=== PATIENT | male | born 1970 | race Two or more races ===

== ENCOUNTER 2024-02-25 00:57 | Emergency (ER) | payer BC ==
[~2024-02-25] VITALS: Ht 167.6 cm; Wt 86.2 kg
[2024-02-25] MEDS ORDERED: DEXAMETHASONE SODIUM PHOSPHATE 4 MG/ML VIAL IM STA (06:15)
[2024-02-25] MEDS ORDERED: KETOROLAC TROMETHAMINE 60 MG VIAL IM STA (06:15)
[2024-02-25] MEDS ORDERED: OxyCODONE HCL/APAP UD (PERCOCET) PO STA (06:16)
[2024-02-25] MEDS ORDERED: DEXAMETHASONE SODIUM PHOSPHATE 4 MG/ML VIAL ONE (06:20)
[2024-02-25] MEDS ORDERED: KETOROLAC TROMETHAMINE 60 MG VIAL IM ONE (06:20)
== END 2024-02-25 07:20 | disposition home or self-care (01) ==
LOC: ER 00:57
DX: S93.491A Sprain of other ligament of right ankle, initial encounter (principal); W01.0XXA Fall on same level from slipping, tripping and stumbling without subsequent striking against object, initial encounter; Y93.89 Activity, other specified; Y92.018 Other place in single-family (private) house as the place of occurrence of the external cause; M25.371 Other instability, right ankle